=== PATIENT | male | born 2005 | race Caucasian/White ===

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

== ENCOUNTER 2025-01-13 16:06 | Emergency (ER) | payer OTHER, BC ==
[~2025-01-13] VITALS: Ht 190.5 cm; Wt 106.6 kg
== END 2025-01-13 17:51 | disposition home or self-care (01) ==
LOC: ED 16:06
DX: S29.011A Strain of muscle and tendon of front wall of thorax, initial encounter (principal); X50.9XXA Other and unspecified overexertion or strenuous movements or postures, initial encounter; Y93.89 Activity, other specified; Y92.89 Other specified places as the place of occurrence of the external cause; Y99.8 Other external cause status